=== PATIENT | male | born 1965 | race African-American/Black ===

== ENCOUNTER 2016-05-18 17:21 | Inpatient (IN) | payer OTHER ==
[2016-05-18] VITALS (217 sets, daily range): BP systolic 131–153; BP diastolic 103–119; PULSE 91–107; TEMP 97.4–98.7; O2SAT 88–100
[~2016-05-18] VITALS: Ht 180.3 cm; Wt 126.5 kg
[2016-05-18 19:50] LABS: INR 1.2 (0.8-3.0); PROTHROMBIN TIME 13.2 SECONDS (9.7-12.8)
[2016-05-19] VITALS (861 sets, daily range): BP systolic 107–160; BP diastolic 76–125; PULSE 62–118; TEMP 96.6–98.6; O2SAT 89–100
[2016-05-19 05:43] LABS: BASO % 0.3 % (0.0-2.0); EOS # 0.1 (0.0-0.7); EOS % 1.5 % (0-4.0); GRAN # 4.3 (1.4-6.5); GRAN % 58.2 % (42.2-75.2); HEMATOCRIT 45.5 % (42.0-52.0); HEMOGLOBIN 14.3 g/dl (13.5-18.0); LYMPH # 2.4 (1.2-3.4); LYMPH % 32.9 % (20.0-51.0); MEAN CELL VOLUME 89 fl (80.0-100.0); MEAN CORPUSCULAR HEMOGLOBIN 28 pg (27.0-31.0); MEAN CORPUSCULAR HGB CONC 31 g/dl (33.0-37.0); MEAN PLATELET VOLUME 9.2 fl (7.4-10.4); MONO # 0.5 (0.1-0.6); MONO % 6.7 % (1.7-9.3); PLATELET COUNT 274 K/mm3 (130-400); RED BLOOD COUNT 5.11 M/mm3 (4.20-5.60); REDCELL DISTRIBUTION WIDTH-CV 14.1 % (11.5-14.5); WHITE BLOOD COUNT 7.3 K/mm3 (4.8-10.8)
[2016-05-19 05:53] LABS: ANION GAP 12 mmol/L (7-16); BLOOD UREA NITROGEN 11 mg/dL (9-20); CALCIUM 9.4 mg/dL (8.4-10.2); CARBON DIOXIDE 28 mmol/L (22-30); CHLORIDE 101 mmol/L (98-107); CREATININE, serum 0.98 mg/dL (0.66-1.25); GLUCOSE 97 mg/dL (74-106); POTASSIUM 3.9 mmol/L (3.4-5.0); SODIUM 141 mmol/L (137-145)
[2016-05-19 06:08] LABS: TROPONIN-I < 0.012 ng/mL (0.000-0.034)
[2016-05-20] VITALS (467 sets, daily range): BP systolic 116–154; BP diastolic 90–106; PULSE 63–74; TEMP 96.8–98.5; O2SAT 84–100
[2016-05-20 05:35] LABS: BASO % 0.5 % (0.0-2.0); EOS # 0.1 (0.0-0.7); EOS % 0.7 % (0-4.0); GRAN # 5.6 (1.4-6.5); GRAN % 66.7 % (42.2-75.2); HEMATOCRIT 45.9 % (42.0-52.0); LYMPH # 2.2 (1.2-3.4); MEAN CELL VOLUME 93 fl (80.0-100.0); MEAN CORPUSCULAR HEMOGLOBIN 28 pg (27.0-31.0); MEAN CORPUSCULAR HGB CONC 31 g/dl (33.0-37.0); MEAN PLATELET VOLUME 9.3 fl (7.4-10.4); MONO # 0.5 (0.1-0.6); MONO % 5.9 % (1.7-9.3); PLATELET COUNT 281 K/mm3 (130-400); RED BLOOD COUNT 4.95 M/mm3 (4.20-5.60); REDCELL DISTRIBUTION WIDTH-CV 14.5 % (11.5-14.5); WHITE BLOOD COUNT 8.3 K/mm3 (4.8-10.8)
[2016-05-20 05:49] LABS: ADJUSTED CALCIUM 8.9 mg/dL (8.4-10.2); CALCIUM 8.9 mg/dL (8.4-10.2); CREATININE, serum 2.37 mg/dL (0.66-1.25); POTASSIUM 5.2 mmol/L (3.4-5.0); TOTAL PROTEIN 7.1 gm/dL (6.4-8.2)
[2016-05-20 12:55] LABS: CALCIUM 8.6 mg/dL (8.4-10.2); CREATININE, serum 1.91 mg/dL (0.66-1.25); PHOSPHOROUS 4.2 mg/dL (2.5-4.5); POTASSIUM 4.1 mmol/L (3.4-5.0)
[2016-05-21 03:07] VITALS: BP 156/100; PULSE 76; TEMP 98.2
[2016-05-21 07:10] LABS: CALCIUM 8.5 mg/dL (8.4-10.2); CREATININE, serum 1.24 mg/dL (0.66-1.25); POTASSIUM 4.3 mmol/L (3.4-5.0)
[2016-05-21 09:26] VITALS: BP 154/109; PULSE 84; TEMP 98
[2016-05-21 12:43] VITALS: BP 160/116; PULSE 78; TEMP 98.6
[2016-05-21 16:52] VITALS: BP 152/109; PULSE 75; TEMP 97.7
[2016-05-21 19:25] VITALS: BP 156/100; PULSE 74; TEMP 98.5
[2016-05-21 23:12] VITALS: BP 155/99; PULSE 73; TEMP 97.6
[2016-05-22 02:46] VITALS: BP 167/100; PULSE 80; TEMP 98.4
[2016-05-22 07:09] LABS: BASO % 0.5 % (0.0-2.0); EOS # 0.1 (0.0-0.7); EOS % 1.3 % (0-4.0); GRAN # 5.3 (1.4-6.5); GRAN % 70.7 % (42.2-75.2); HEMATOCRIT 45.1 % (42.0-52.0); HEMOGLOBIN 14.1 g/dl (13.5-18.0); LYMPH # 1.5 (1.2-3.4); LYMPH % 20.6 % (20.0-51.0); MEAN CELL VOLUME 90 fl (80.0-100.0); MEAN CORPUSCULAR HEMOGLOBIN 28 pg (27.0-31.0); MEAN CORPUSCULAR HGB CONC 31 g/dl (33.0-37.0); MEAN PLATELET VOLUME 9.4 fl (7.4-10.4); MONO # 0.5 (0.1-0.6); MONO % 6.5 % (1.7-9.3); PLATELET COUNT 272 K/mm3 (130-400); RED BLOOD COUNT 5.02 M/mm3 (4.20-5.60); WHITE BLOOD COUNT 7.4 K/mm3 (4.8-10.8)
[2016-05-22 07:32] LABS: CALCIUM 9.4 mg/dL (8.4-10.2); CREATININE, serum 0.95 mg/dL (0.66-1.25); POTASSIUM 4.2 mmol/L (3.4-5.0)
[2016-05-22 08:49] VITALS: BP 177/113; PULSE 81; TEMP 98.4
[2016-05-22] MEDS ORDERED: ELIQUIS 5MG PO (10:54)
[2016-05-22] MEDS ORDERED: LIPITOR 40MG TA40 MG PO (10:54)
[2016-05-22] MEDS ORDERED: BETAPACE 120MG120 MG PO (10:55)
[2016-05-22] MEDS ORDERED: ASPI325T6 PO (10:55)
[2016-05-22] MEDS ORDERED: NORVASC 10MG10 MG PO (10:55)
[2016-05-22] MEDS ORDERED: APRESOLINE 10MG10 MG PO (10:55)
[2016-05-22 12:39] VITALS: BP 172/109; PULSE 80; TEMP 98.8
== END 2016-05-22 14:30 | disposition home or self-care (01) | DRG 682 ==
LOC: IMCU 17:21 → MEDICAL 05-20 19:45
PROVIDERS: Family Medicine; Internal Medicine; Internal Medicine Cardiovascular Disease; Nurse Practitioner Family
PROC: 5A2204Z Restoration of Cardiac Rhythm, Single (ICD-10-PCS; principal; 2016-05-19)
DX: N17.9 Acute kidney failure, unspecified (principal); J96.00 Acute respiratory failure, unspecified whether with hypoxia or hypercapnia; I48.92 Unspecified atrial flutter; I10 Essential (primary) hypertension; J44.9 Chronic obstructive pulmonary disease, unspecified; E78.5 Hyperlipidemia, unspecified; H91.93 Unspecified hearing loss, bilateral; Z87.891 Personal history of nicotine dependence
CPT/HCPCS: 99232-AI; 99233-AI; 99238; G9654; J0282; J1560; J1940; J2270; J2704; J7030; J7040; J7050; J7060

== ENCOUNTER 2016-06-22 14:57 | Inpatient (IN) | payer OTHER ==
[~2016-06-22] VITALS: Ht 182.9 cm; Wt 120.1 kg
[2016-06-22] VITALS (129 sets, daily range): BP systolic 123–133; BP diastolic 88–91; PULSE 69–90; TEMP 98.1–98.7; O2SAT 92–100
[~2016-06-22 14:57] MED LIST: APRESOLINE 10MG10 MG PO; ASPI325T6 PO; BETAPACE 120MG120 MG PO; ELIQUIS 5MG PO; LIPITOR 40MG TA40 MG PO; NORVASC 10MG10 MG PO
[2016-06-22 19:28] LABS: TROPONIN-I < 0.012 ng/mL (0.000-0.034)
[2016-06-22 19:52] LABS: MAGNESIUM 1.6 mg/dL (1.6-2.3)
[2016-06-23] VITALS (363 sets, daily range): BP systolic 115–140; BP diastolic 83–97; PULSE 65–82; TEMP 97.2–98.4; O2SAT 82–100
[2016-06-23 06:13] LABS: HEMATOCRIT 45.6 % (42.0-52.0); MEAN CELL VOLUME 89 fl (80.0-100.0); MEAN CORPUSCULAR HEMOGLOBIN 27 pg (27.0-31.0); MEAN CORPUSCULAR HGB CONC 31 g/dl (33.0-37.0); MEAN PLATELET VOLUME 9.3 fl (7.4-10.4); PLATELET COUNT 250 K/mm3 (130-400); RED BLOOD COUNT 5.11 M/mm3 (4.20-5.60); REDCELL DISTRIBUTION WIDTH-CV 13.3 % (11.5-14.5); WHITE BLOOD COUNT 5.8 K/mm3 (4.8-10.8)
[2016-06-23 06:32] LABS: ADJUSTED CALCIUM 9.1 mg/dL (8.4-10.2); ALANINE AMINOTRANSFERASE 66 U/L (21-72); ALBUMIN 3.8 gm/dL (3.5-5.0); ALKALINE PHOSPHATASE 69 U/L (50-136); ANION GAP 9 mmol/L (7-16); BILIRUBIN,TOTAL 0.7 mg/dL (0.0-1.0); BLOOD UREA NITROGEN 10 mg/dL (9-20); CALCIUM 8.9 mg/dL (8.4-10.2); CARBON DIOXIDE 28 mmol/L (22-30); CHLORIDE 101 mmol/L (98-107); GLUCOSE 89 mg/dL (74-106); MAGNESIUM 1.8 mg/dL (1.6-2.3); POTASSIUM 4.4 mmol/L (3.4-5.0); SODIUM 138 mmol/L (137-145); TOTAL PROTEIN 7.2 gm/dL (6.4-8.2)
[2016-06-23 06:46] LABS: TROPONIN-I < 0.012 ng/mL (0.000-0.034)
[2016-06-24] VITALS (521 sets, daily range): BP systolic 121–137; BP diastolic 79–88; PULSE 74–77; TEMP 97.8–98.6; O2SAT 73–100
[2016-06-24 06:14] LABS: BASO % 0.5 % (0.0-2.0); EOS # 0.5 (0.0-0.7); EOS % 7.4 % (0-4.0); GRAN # 3.9 (1.4-6.5); GRAN % 64.4 % (42.2-75.2); HEMATOCRIT 43.8 % (42.0-52.0); HEMOGLOBIN 13.6 g/dl (13.5-18.0); LYMPH # 1.1 (1.2-3.4); LYMPH % 18.7 % (20.0-51.0); MEAN CELL VOLUME 89 fl (80.0-100.0); MEAN CORPUSCULAR HEMOGLOBIN 28 pg (27.0-31.0); MEAN CORPUSCULAR HGB CONC 31 g/dl (33.0-37.0); MEAN PLATELET VOLUME 9.4 fl (7.4-10.4); MONO # 0.5 (0.1-0.6); MONO % 8.7 % (1.7-9.3); PLATELET COUNT 243 K/mm3 (130-400); RED BLOOD COUNT 4.93 M/mm3 (4.20-5.60); REDCELL DISTRIBUTION WIDTH-CV 13.3 % (11.5-14.5); WHITE BLOOD COUNT 6.1 K/mm3 (4.8-10.8)
[2016-06-24 06:29] LABS: CALCIUM 8.8 mg/dL (8.4-10.2); CREATININE, serum 0.9 mg/dL (0.66-1.25)
[2016-06-24] MEDS ORDERED: ASPIRIN E.C. 8181 MG PO (09:25)
[2016-06-24] MEDS ORDERED: APRESOLINE 10MG10 MG PO (15:29)
[2016-06-24] MEDS ORDERED: LIPITOR 40MG TA40 MG PO (15:29)
[2016-06-24] MEDS ORDERED: NORVASC 10MG10 MG PO (15:29)
== END 2016-06-24 15:30 | disposition home or self-care (01) | DRG 282 ==
LOC: IMCU 14:57 → ICU 16:01 → IMCU 16:01 → ICU 16:46 → IMCU 06-23 15:40
PROVIDERS: Internal Medicine; Internal Medicine Cardiovascular Disease
PROC: 5A2204Z Restoration of Cardiac Rhythm, Single (ICD-10-PCS; principal; 2016-06-23)
DX: I48.0 Paroxysmal atrial fibrillation (principal); I21.4 Non-ST elevation (NSTEMI) myocardial infarction; I10 Essential (primary) hypertension; I47.2 Ventricular tachycardia; Z87.891 Personal history of nicotine dependence; Z91.14 Patient's other noncompliance with medication regimen
CPT/HCPCS: 99223-AI; 99233-AI; 99238; J2704; J3475

== ENCOUNTER → 2017-05-26 | Outpatient (CLI) | payer OTHER ==
[~2017-05-26] MED LIST changes: +ASPIRIN E.C. 8181 MG PO
== END ==
LOC: COL.VAS 11:15
DX: Z13.6 Encounter for screening for cardiovascular disorders (principal); M79.604 Pain in right leg; R60.0 Localized edema

== ENCOUNTER 2018-02-03 12:55 | Inpatient (IN) | payer OTHER ==
[2018-02-03] VITALS (236 sets, daily range): BP systolic 83–141; BP diastolic 58–89; PULSE 51–127; TEMP 97.7–99; O2SAT 53–99
[~2018-02-03] VITALS: Ht 193 cm; Wt 106.6 kg
[2018-02-03] MEDS ORDERED: INDOCIN 25MG CA25 MG PO (13:33)
[2018-02-03] MEDS ORDERED: NORCO 325 MG-51 TAB PO (13:34)
[2018-02-03 13:54] LABS: BASO % 0.2 % (0.0-2.0); GRAN # 8.3 (1.4-6.5); GRAN % 80.8 % (42.2-75.2); HEMATOCRIT 47.7 % (42.0-52.0); HEMOGLOBIN 14.9 g/dl (13.5-18.0); LYMPH # 1.2 (1.2-3.4); LYMPH % 11.9 % (20.0-51.0); MEAN CELL VOLUME 90 fl (80.0-100.0); MEAN CORPUSCULAR HEMOGLOBIN 28 pg (27.0-31.0); MEAN CORPUSCULAR HGB CONC 31 g/dl (33.0-37.0); MONO # 0.7 (0.1-0.6); MONO % 6.8 % (1.7-9.3); PLATELET COUNT 214 K/mm3 (130-400); RED BLOOD COUNT 5.31 M/mm3 (4.20-5.60); REDCELL DISTRIBUTION WIDTH-CV 14.5 % (11.5-14.5)
[2018-02-03 14:06] LABS: ALBUMIN 3.9 gm/dL (3.5-5.0); BILIRUBIN,TOTAL 1.2 mg/dL (0.0-1.0); C-REACTIVE PROTEIN 4.2 mg/dL (0.0-0.9); CALCIUM 9.1 mg/dL (8.4-10.2); CREATININE, serum 0.88 mg/dL (0.66-1.25); POTASSIUM 4.4 mmol/L (3.4-5.0); TOTAL PROTEIN 7.4 gm/dL (6.4-8.2)
[2018-02-03 15:44] LABS: COLLECTION METHOD CLEAN CATCH
[2018-02-03 15:59] LABS: MUCOUS Present /lpf; PH 5 (5-8); SQUAMOUS EPITHELIAL None Seen /hpf; URINE APPEARANCE Clear; URINE BACTERIA None Seen /hpf; URINE BILIRUBIN Negative (NEGATIVE); URINE BLOOD 1+ (NEGATIVE); URINE COLOR Yellow; URINE GLUCOSE Negative (NEGATIVE); URINE KETONE Negative (NEGATIVE); URINE LEUKOCYTE ESTERASE Negative (NEGATIVE); URINE NITRATE Negative (NEGATIVE); URINE PROTEIN(semi-quant) 3+ (NEGATIVE); URINE RBC 0-2 /hpf
--- NOTE | 2018-02-03 16:00 | NUR ---
Patient arrives to ICU room 8 at 1550. He is oriented to room and call light. Patient is deaf, but reads lips well. He also communicates with sign language. VS WNL. Assessment completed. Cardizem gtt infusing at 5 mg/hr. NS bolus going in by gravity. Will continue to monitor.
--- NOTE | 2018-02-03 16:30 | NUR ---
Dr. Lott here to see patient
--- NOTE | 2018-02-03 19:06 | NUR ---
Bedside report given to HARSHA Faustin. Plan of care discussed. Care turned over at this time
--- NOTE | 2018-02-03 19:45 | NUR ---
Patient assessment completed and charted at this time, please see documentation for details. Patient resting in bed, does complain of some lower back pain. Conversed with patient and agreed to allow PO medication a little more time to work. Will continue to monitor and assess.
[2018-02-04] VITALS (935 sets, daily range): BP systolic 101–140; BP diastolic 40–95; PULSE 50–80; TEMP 97.7–98.5; O2SAT 66–100
--- NOTE | 2018-02-04 05:51 | NUR ---
PT RESTING IN BED. DEAF. HAS HEARING AIDES. SPEECH DIFFICULT TO UNDERSTAND. STILL IN AFLUTTER. CARDIOVERSION SCHEDULED FOR TDAY AT 10AM.
[2018-02-04 07:14] LABS: CALCIUM 8.4 mg/dL (8.4-10.2); CREATININE, serum 2.25 mg/dL (0.66-1.25)
--- NOTE | 2018-02-04 07:15 | NUR ---
Bedside report received from HARSHA Faustin. Most recent labs reviewed and phoned to Dr. Lott and Dr. Amador. Nephrology consult called. Orders received to treat high potassium with kayexalate and calcium gluconate. see emar. will continue to monitor
[2018-02-04 07:19] LABS: MAGNESIUM 1.8 mg/dL (1.6-2.3)
--- NOTE | 2018-02-04 08:15 | NUR ---
ORDER RECEIVED FROM DR. NGUYEN TO HOLD IV FLUIDS AT THIS TIME. ORDERS ALSO RECEIVED FOR CHEST XRAY AND STAT BNP
[2018-02-04 09:36] LABS: PARTIAL THROMBOPLASTIN TIME 41.4 SECONDS (26.0-37.0)
[2018-02-04 09:38] LABS: CALCIUM 8.7 mg/dL (8.4-10.2); CREATININE, serum 2.37 mg/dL (0.66-1.25)
[2018-02-04 09:40] LABS: POTASSIUM 6.8 mmol/L (3.4-5.0)
--- NOTE | 2018-02-04 10:15 | NUR ---
DR. OLIVERA AND DR. NGUYEN HERE TO SEE PATIENT.
--- NOTE | 2018-02-04 12:44 | NUR ---
1212- TIME OUT, ALL PROVIDERS, TECHS, RNS IN ROOM. 1215- TOO STARTS 1218-TOO ENDS 1219- PATIENT CARDIOVERTED WITH 50 JOULES FROM AFLUTTER TO SR 70s 1234- MANAGER MARKET INTELLIGENCE CALI DEEMS PATIENT STABLE AND ABLE TO MANAGE HIS AIRWAY. THIS RN RESUMES RECOVERY 1245- PATIENT WAKENS TO LIGHT STIMULATION, VS WNL, OFF O2, WILL CONTINUE TO MONITOR
[2018-02-04 13:58] LABS: URINE PROTEIN:CREAT RATIO 3.18 (0.00-0.14)
[2018-02-04 14:54] LABS: CALCIUM 7.9 mg/dL (8.4-10.2); CREATININE, serum 2.75 mg/dL (0.66-1.25)
[2018-02-04 15:02] LABS: POTASSIUM 5.9 mmol/L (3.4-5.0)
--- NOTE | 2018-02-04 16:30 | NUR ---
Patient complains of needing to void. Bladder scan completed. 32 cc urine found in bladder. Urine droplets draining out of medellin, patient encouraged to try to relax and rest. Will continue to monitor
--- NOTE | 2018-02-04 19:36 | NUR ---
BEDSIDE REPORT GIVEN TO HARSHA LEON. PATIENT C/O DISCOMFORT AND "NEEDING TO PEE". HE SITS ON SIDE OF BED. HEPARIN GTT AND LASIX GTT REVIEWED. CARE TURNED OVER AT THIS TIME.
--- NOTE | 2018-02-04 20:30 | NUR ---
Patient difficult to communicate with. Appears to have little interest in nursing care. This nurse has to make multiple attempts to get patient to answer questions and read written questions. Gives vague responses or doesn't respond at all to direct questions. Able to follow all commands and is alert.
[2018-02-05] VITALS (1374 sets, daily range): BP systolic 96–157; BP diastolic 64–109; PULSE 72–83; TEMP 98.2–99.2; O2SAT 33–100
[2018-02-05 00:10] LABS: CALCIUM 7.8 mg/dL (8.4-10.2); CREATININE, serum 3.4 mg/dL (0.66-1.25); POTASSIUM 5.2 mmol/L (3.4-5.0)
--- NOTE | 2018-02-05 00:40 | NUR ---
Called Dr. Thompson to report latest BMP results and that patient has had two hours of greater than 350 urine output. Instructed to hold drip and restart it a 5 mg/hr at 0130. If Still greater than 250 after one hour then can discontinue drip. Will Make NPO just in case patient will need emergent dialysis tomorrow.
--- NOTE | 2018-02-05 02:48 | NUR ---
Eulalia warren stopped per Dr. Thompson's orders.
--- NOTE | 2018-02-05 05:45 | NUR ---
Benefits Administrator 1st attempt unsuccessful at obtaining labs. Attempted to draw from IV but was not able to get enough blood. Patient refusing to allow tech to re-attempt. Will Re-try again with another tech.
--- NOTE | 2018-02-05 07:15 | NUR ---
Report received from HARSHA English.
--- NOTE | 2018-02-05 08:00 | NUR ---
Assessment completed. Pt is deaf. Pt nods head yes/no to questions written down for him. Remains on heparin gtt. Mayes catheter in place with increased urine output. Call light in reach. Will monitor.
[2018-02-05 08:21] LABS: CALCIUM 8.1 mg/dL (8.4-10.2); CREATININE, serum 3.81 mg/dL (0.66-1.25); POTASSIUM 4.5 mmol/L (3.4-5.0)
--- NOTE | 2018-02-05 09:41 | NUR ---
Pt's BP still 150/100s. Paged Dr. Carr's RN. Waiting for call back.
--- NOTE | 2018-02-05 11:09 | NUR ---
tie up worker attended clinical rounds and met with patient to discuss discharge planning. Patient is deaf and reads lips. Patient was unable to communicate with worker. Worker left a message with patient's Aunt, Cheri at [phone] to call.
--- NOTE | 2018-02-05 11:30 | NUR ---
Rehab assisted pt to chair. Pt needs x1 assist. Pt tolerated well. Call light in reach.
--- NOTE | 2018-02-05 12:00 | NUR ---
Pt sitting in chair. vital signs stable. REmains on Heparin gtt. Call light in reach.
--- NOTE | 2018-02-05 13:30 | NUR ---
Alayna from [facility], placed PICC in Right upper arm. CXR done and placement verified. Peripheral IV x2 in left arm dc'd. Heparin gtt infusing through PICC in red port.
--- NOTE | 2018-02-05 16:00 | NUR ---
Pt resting in bed. Easily arousable. Nods head yes/no to questions. Vital signs stable. On Amiodarone and Heparin gtts through right upper arm PICC. Call light in reach.
[2018-02-05 17:04] LABS: COMPLEMENT-C3 135 mg/dL (79-152); COMPLEMENT-C4 27 mg/dL (18-55)
--- NOTE | 2018-02-05 18:00 | NUR ---
Pt's family at bedside. Updated on pt status and plan of care r/t Amiodarone gtt and heparin gtts. Discussed increased urine output after lasix gtt taken off. Pt's family verbalized understanding.
--- NOTE | 2018-02-05 19:10 | NUR ---
Report given to HARSHA Andres.
--- NOTE | 2018-02-05 20:00 | NUR ---
DURING PT ASSESSMENT, PT INATTENTIVE, DROWSY, AND FALLING ASLEEP RATHER QUICKLY. PT ASKED QUESTION BY WRITING NOTES TO PT AND HAVING PT READ NURSES LIPS DUE TO PTS HEARING DEFICIT. PT DID NOT EAT MUCH OF DINNER. PT A&O X3. ANSWERS QUESTION APPROPRIATELY. PT DENIES PAIN AT THIS TIME. PT RESTING SEMI FOWLERS IN BED.
[2018-02-05 21:54] LABS: ANA SCREEN with REFLEX Negative (Negative)
[2018-02-06] VITALS (988 sets, daily range): BP systolic 120–143; BP diastolic 77–92; PULSE 71–80; TEMP 97.7–98.8; O2SAT 77–100
[2018-02-06 06:34] LABS: HEMATOCRIT 48.5 % (42.0-52.0); HEMOGLOBIN 15.9 g/dl (13.5-18.0); MEAN CELL VOLUME 87 fl (80.0-100.0); MEAN CORPUSCULAR HEMOGLOBIN 28 pg (27.0-31.0); MEAN CORPUSCULAR HGB CONC 33 g/dl (33.0-37.0); MEAN PLATELET VOLUME 10.2 fl (7.4-10.4); PLATELET COUNT 140 K/mm3 (130-400); RED BLOOD COUNT 5.59 M/mm3 (4.20-5.60); REDCELL DISTRIBUTION WIDTH-CV 13.7 % (11.5-14.5)
[2018-02-06 06:39] LABS: CALCIUM 7.9 mg/dL (8.4-10.2); CREATININE, serum 2.93 mg/dL (0.66-1.25)
[2018-02-06 06:53] LABS: POTASSIUM 2.9 mmol/L (3.4-5.0)
--- NOTE | 2018-02-06 07:00 | NUR ---
Bedside shift report received from HARSHA Andres. Pt in bed resting, eyes closed, will continue mini onitor.
--- NOTE | 2018-02-06 15:54 | NUR ---
Called Lilly for clarification on Hydralazine. Per Lilly, "no parameters, just give the med as scheduled". Will do
--- NOTE | 2018-02-06 17:12 | NUR ---
Assessment charted. pt c/o abd discomfort, feeling of fullness. Lotion applied to BLE for dryness. Pt communicating minimally with paper and pen as well as lip reading. Pt up to chair and back to bed, eating some food but not a good appetite. Has been coughing when moving from bed to chair and has some pink sputum but also drinking cranberry juice. PICC dressing changed per orders. Heparin gtt to JAYDE. Amio gtt d/c'd at 1500 after PO amio given at 1400. Report called to HARSHA Bergman on medical who will resume care. Transported pt via w/c with medical nurse and all belongings to new room. Pt given call light and assisted to bed. Medical nurse to resume care.
--- NOTE | 2018-02-06 17:31 | NUR ---
Pt up to unit from ICU. Report received from Nuha MCLEOD. Pt completed K+ protocol and recheck scheduled for 1899. Pt on Heparin drip at 22.6mL/hr via right arm PICC. Pt has productive cough with white sputum. Pt on telemetry and HR irregular and in the 80's. Pt denies pain. Pt does not want to order food now advised pt need to order by 1830. Pt requests a cough drop will update hospitalist. Pt is deaf and white board used to communicate. Pt oriented to room and med reconciliation completed. Pt has call light in reach and desk notified pt is deaf. Pt lungs are clear. Pt has medellin cath that is patent with yellow urine and small amt of sediment noted.
--- NOTE | 2018-02-06 18:12 | NUR ---
Pt on Heparin gtt at 22.6ml/hr. No HepXa since 821am so ordered HepXa now stat. Heparin gtt stopped for 10min and then lab emile Hep Xa with nurse from pt PICC line. Pt resting in bed with eyes closed and respirations unlabored. Pt has call light in reach.
--- NOTE | 2018-02-06 19:55 | NUR ---
Shift assessment complete. Pt resting in bed, awake, a&o, cooperative c cares. Pt c/o cough et sore throat, req cough drops; pt denies any other c/o. PICC noted to R upper arm, patent c good blood return. Tele in place. Gerber to dd. Hep gtt infusing per orders. Pt denies further needs. Call light in reach, will monitor.
[2018-02-06 20:36] LABS: C-ANCA 19 U/mL (0-99)
[2018-02-07 01:31] VITALS: BP 124/80; PULSE 78; TEMP 98.7
[2018-02-07 04:21] VITALS: PULSE 72
[2018-02-07 07:30] LABS: CALCIUM 8.7 mg/dL (8.4-10.2)
--- NOTE | 2018-02-07 08:16 | NUR ---
Assessment completed, alert/oriented, vital signs stable, denies any chest pain or discomfort, heart irregular at this time/ has been in and out of A.fib /flutter on telemetry through the night/ currently HR 130, morning amiodarone and hydralazine given at thi stime, distal pulses are palpable, 1-2+ edema to BLE, lungs CTA/ no resp.difficulty noted, potassium 3.0 / replacing per protocol, GFR up a little thi moring at 42 and creat is down to 2.0, medellin patent with clear yellow urine and good output noted, Hep gtt continues and adjusting according to protocol, helped him order brekfast, denies other needs at this time
[2018-02-07 08:46] VITALS: BP 93/67; PULSE 51; TEMP 97.3
[2018-02-07 12:35] VITALS: BP 124/81; PULSE 74; TEMP 97.8
[2018-02-07 16:31] VITALS: BP 135/83; PULSE 72; TEMP 98.1
[2018-02-07 20:00] VITALS: BP 144/86; PULSE 77; TEMP 98.2
--- NOTE | 2018-02-07 20:10 | NUR ---
Shift assessment complete. Pt resting in bed, awake, a&o, cooperative c cares. Pt reports continued abd pain et flank pain, denies any other c/o. PICC noted to R upper arm, patent c good blood return. Heparin gtt infusing per orders. Tele in place. Mayes to dd s complication. Pt denies further needs. Call light in reach, will monitor.
[2018-02-08 00:28] VITALS: BP 134/88; PULSE 79; TEMP 98.2
[2018-02-08 06:07] LABS: HEMATOCRIT 51.5 % (42.0-52.0); HEMOGLOBIN 16.6 g/dl (13.5-18.0); MEAN CELL VOLUME 87 fl (80.0-100.0); MEAN CORPUSCULAR HEMOGLOBIN 28 pg (27.0-31.0); MEAN CORPUSCULAR HGB CONC 32 g/dl (33.0-37.0); MEAN PLATELET VOLUME 10.5 fl (7.4-10.4); PLATELET COUNT 188 K/mm3 (130-400); RED BLOOD COUNT 5.91 M/mm3 (4.20-5.60); REDCELL DISTRIBUTION WIDTH-CV 13.9 % (11.5-14.5)
[2018-02-08 06:24] LABS: CREATININE, serum 1.73 mg/dL (0.66-1.25); POTASSIUM 3.6 mmol/L (3.4-5.0)
[2018-02-08 08:00] VITALS: BP 139/69; PULSE 80; TEMP 99.1
--- NOTE | 2018-02-08 09:58 | NUR ---
Assessment completed, alert/oriented, vital signs stable, continues to report moderats flank pain as well as Medellin catherter associate discomfort, Giving [place] PRN and he does report this helpes some, notified of pain, we will removed medellin and do voiding trial, creatnine trending down and he is making good urine output, heart RRR this morning/ still having runs of A.fib/ ST and Cardiology is following, he is drinking plenty of fluid but does not have appetite, Heparin gtt infusing/ monitoring per protocol, denies other needs at this time
[2018-02-08 10:55] VITALS: BP 122/86; PULSE 80; TEMP 98.1
--- NOTE | 2018-02-08 12:00 | NUR ---
THIS NURSE SAW ORDER FOR NEW HAPARIN BAG TO BE CHANGED OUT. WENT TO CHECK PT HEP XA TO SEE IF RATE CHANGE WAS NEEDED. THIS NURSE SAW THAT NO HEP XA LAB WAS DRAWN AT 1999, PER PROTOCOL. ORDERED A STAT HEP XA LEVEL. LEVEL WAS 0.81. ADJUSTED RATE PROTOCOL TO 20.1 SUBRATICING 1.5 FROM THE CURRENT RATE. ANOTHER LAB CHECK ORDERED FOR 6 HOURS FROM LAB DRAW.
[2018-02-08 15:20] VITALS: BP 106/78; PULSE 84; TEMP 98.4
--- NOTE | 2018-02-08 16:15 | NUR ---
instructed the patient on wanting to do PVR after medellin removed, he voided but did not call/ so I explained over again what we were wanting to do with the PVR and to call us immediatley after he voids urine, he voiced understanding
--- NOTE | 2018-02-08 20:00 | NUR ---
PT HAD C/O BACK PAIN THIS HS. GAVE PRN PAIN MEDS, PT WANTED AN ICE PACK TO AREA. PT HAD WALKED SOME IN THE [place] TO HELP ELEVAIATE PAIN.
[2018-02-08 20:42] VITALS: BP 150/78; PULSE 79; TEMP 98.8
[2018-02-09] VITALS (8 sets, daily range): BP systolic 129–170; BP diastolic 72–95; PULSE 59–88; TEMP 97.5–99
--- NOTE | 2018-02-09 01:00 | NUR ---
PT HAS BEEN RECIEVING ICE ON HIS BACK THROUGHOUT NOC. STATED THAT ITS HELPED RELIEVED PAIN
--- NOTE | 2018-02-09 02:53 | NUR ---
TELEMETERY CALLED THIS NURSE AND SAID PT WAS IN AFIB, AND TO OBTAIN AN EKG. PTS PULSE WAS 150'S RANGE. EKG STATED THAT PT WAS IN AFIB RVR. BLOOD PRESSURE AFTER EKG IS 170/72. NOTIFIED NATIVIDAD BERG
--- NOTE | 2018-02-09 03:17 | NUR ---
PT WAS BLADDER SCANNED THIS SHIFT. PT ONLY HAD 100CC IN BLADDER AT THE TIME. NO COMPLAINTS.
[2018-02-09 07:49] LABS: HEMOGLOBIN 16.4 g/dl (13.5-18.0); MEAN CELL VOLUME 85 fl (80.0-100.0); MEAN CORPUSCULAR HEMOGLOBIN 28 pg (27.0-31.0); MEAN CORPUSCULAR HGB CONC 33 g/dl (33.0-37.0); MEAN PLATELET VOLUME 9.8 fl (7.4-10.4); PLATELET COUNT 190 K/mm3 (130-400); RED BLOOD COUNT 5.88 M/mm3 (4.20-5.60); REDCELL DISTRIBUTION WIDTH-CV 13.6 % (11.5-14.5)
[2018-02-09 07:59] LABS: CALCIUM 8.7 mg/dL (8.4-10.2); CREATININE, serum 1.53 mg/dL (0.66-1.25); POTASSIUM 3.4 mmol/L (3.4-5.0)
[2018-02-09 09:19] LABS: BAND 1 % (0-10); EOSINOPHIL 1 % (0-4); LYMPHOCYTE 19 % (20.0-51.0); NEUTROPHILS 67 % (42.0-75.2); PLATELET ESTIMATE NORMAL (NORMAL)
--- NOTE | 2018-02-09 11:20 | NUR ---
Assessment completed, alert/oriented, vital signs stable, denies any acute pain or dsicomfort, [place] given for his ongoing back pain/ also went for a walk in the hallway as the position changes help with the discomfort as well, heart RRR/ distal pulses are palpable, no runs of A.fib noted on tele so far during my shift, spoke with / we will stop hep gtt and tansition to oral anticoagulation today, medellin removed yesterday and patient voiding find/ PVR have been minimal, replacing KCL per protocol, denies needs, will continue to monitor
--- NOTE | 2018-02-09 13:00 | NUR ---
PICC intact right upper arm. With sterile technique right upper arm PICC dressing change done with insertion site cleansed with ChloraPrep 1, StatLock, skin prep, and Tegaderm applied. No signs or symptoms of IV complications noted. No concerns voiced. Arm wrapped with Rico to protect catheter.
[2018-02-09] MEDS ORDERED: XARELTO20 MG PO (16:43)
[2018-02-09] MEDS ORDERED: PACERONE400 MG PO (16:44)
[2018-02-09] MEDS ORDERED: LIPITOR20 MG PO (16:44)
[2018-02-09] MEDS ORDERED: APRESOLINE 25MG25 MG PO (16:45)
[2018-02-09] MEDS ORDERED: IMDUR 30MG30 MG/TAB PO (16:45)
[2018-02-10 03:37] VITALS: BP 156/98; PULSE 85; TEMP 97.8
--- NOTE | 2018-02-10 04:23 | NUR ---
PT HAD UNEVENTFUL NOC. PT HAD SOME NOTED C/O BACK PAIN AT HS, ADMINSITERED PRN MED AND PROVIDED PT WITH ICE PACK PER REQUEST. PT DID WALK THE HALLS SOME THIS EVENING. HAD A SNACK, AND ENSURE AT HS. NO OTHER ISSUES OR CONSERNS VOICED.
[2018-02-10 06:00] LABS: HEMOGLOBIN 17.4 g/dl (13.5-18.0); MEAN CELL VOLUME 87 fl (80.0-100.0); MEAN CORPUSCULAR HEMOGLOBIN 28 pg (27.0-31.0); MEAN CORPUSCULAR HGB CONC 32 g/dl (33.0-37.0); MEAN PLATELET VOLUME 10.1 fl (7.4-10.4); PLATELET COUNT 192 K/mm3 (130-400); RED BLOOD COUNT 6.26 M/mm3 (4.20-5.60); REDCELL DISTRIBUTION WIDTH-CV 13.8 % (11.5-14.5)
[2018-02-10 06:13] LABS: HEMATOCRIT 54.3 % (42.0-52.0)
[2018-02-10 06:14] LABS: CALCIUM 9.2 mg/dL (8.4-10.2); CREATININE, serum 1.53 mg/dL (0.66-1.25); MAGNESIUM 1.5 mg/dL (1.6-2.3); POTASSIUM 3.7 mmol/L (3.4-5.0)
[2018-02-10 06:55] LABS: BAND 1 % (0-10); LYMPHOCYTE 21 % (20.0-51.0); NEUTROPHILS 66 % (42.0-75.2)
[2018-02-10 06:56] LABS: PLATELET ESTIMATE NORMAL (NORMAL); TOXIC GRANULATION PRESENT
[2018-02-10 07:51] VITALS: BP 131/87; PULSE 78; TEMP 98.6
--- NOTE | 2018-02-10 08:00 | NUR ---
PATIENT ASSESSMENT COMPLETED. DENIES PAIN BREAKFAST HAS ARRIVED NO OTHER NEEDS AT THIS TIME
[2018-02-10 12:50] VITALS: BP 112/79; PULSE 80; TEMP 99
--- NOTE | 2018-02-10 13:43 | NUR ---
Pt discharged at this time. R upper arm PICC line removed at 1300 per protocol. Education regarding high blood pressure, lower back pain, atrial flutter, rivaroxaban, isosorbide mononitrate, hydralazine, atrovastatin, amiodarone, and s/sx's of an adverse reaction provided. Pt verbalizes understanding. Pt escourted out via WC with tech. Nely
[2018-02-10 14:04] LABS: RENIN,PLASMA 1.5 ng/mL/h (())
== END 2018-02-10 12:40 | disposition home or self-care (01) | DRG 308 ==
LOC: COL.ER 12:55 → ICU 14:39 → MEDICAL 16:00 → ICU 16:01 → MEDICAL 02-06 17:00
PROVIDERS: Emergency Medicine; Internal Medicine; Nurse Practitioner Family; ADMIT Internal Medicine
PROC: 5A2204Z Restoration of Cardiac Rhythm, Single (ICD-10-PCS; principal; 2018-02-04)
DX: I48.92 Unspecified atrial flutter (principal); I50.23 Acute on chronic systolic (congestive) heart failure; N17.9 Acute kidney failure, unspecified; I48.0 Paroxysmal atrial fibrillation; I11.0 Hypertensive heart disease with heart failure; E78.5 Hyperlipidemia, unspecified; Z91.14 Patient's other noncompliance with medication regimen; Z87.891 Personal history of nicotine dependence; G47.33 Obstructive sleep apnea (adult) (pediatric); E87.5 Hyperkalemia; I27.22 Pulmonary hypertension due to left heart disease; I08.1 Rheumatic disorders of both mitral and tricuspid valves
CPT/HCPCS: 99222-AI; 99232-AI; 99233-AI; 99239; C1751; G9654; J0282; J0360; J0610; J1170; J1644; J1650; J1940; J2704; J3480; J7030; J7060

== ENCOUNTER 2018-03-07 08:52 | Day surgery (SDC) | payer OTHER ==
[2018-03-07] VITALS (8 sets, daily range): BP systolic 125–166; BP diastolic 78–114; PULSE 68–74; TEMP 98.8
[~2018-03-07] VITALS: Ht 193.1 cm; Wt 109.9 kg
[~2018-03-07 08:52] MED LIST changes: +APRESOLINE 25MG25 MG PO; +IMDUR 30MG30 MG/TAB PO; +INDOCIN 25MG CA25 MG PO; +LIPITOR20 MG PO; +NORCO 325 MG-51 TAB PO; +PACERONE400 MG PO; +XARELTO20 MG PO
[2018-03-07 09:34] LABS: HEMATOCRIT 44.5 % (42.0-52.0); MEAN CELL VOLUME 88 fl (80.0-100.0); MEAN CORPUSCULAR HEMOGLOBIN 28 pg (27.0-31.0); MEAN CORPUSCULAR HGB CONC 32 g/dl (33.0-37.0); PLATELET COUNT 367 K/mm3 (130-400); RED BLOOD COUNT 5.05 M/mm3 (4.20-5.60); REDCELL DISTRIBUTION WIDTH-CV 13.8 % (11.5-14.5)
[2018-03-07 09:40] LABS: INR 1.4 (0.8-3.0); PROTHROMBIN TIME 16.2 SECONDS (9.7-12.8)
[2018-03-07 09:45] LABS: CALCIUM 9.4 mg/dL (8.4-10.2); CREATININE, serum 1.43 mg/dL (0.66-1.25); POTASSIUM 4.3 mmol/L (3.4-5.0)
[2018-03-07] MEDS ORDERED: CORDARONE200 MG/TAB PO (09:48)
[2018-03-07] MEDS ORDERED: PROAIR HFA0.09 MG/AC IH (09:49)
[2018-03-07] MEDS ORDERED: XARELTO20 MG PO (09:51)
[2018-03-07] MEDS ORDERED: TOPROL XL 25MG25 MG PO (09:51)
[2018-03-07] MEDS ORDERED: LIPITOR20 MG PO (09:52)
[2018-03-07] MEDS ORDERED: BACTRIM DS 8001 TAB PO (09:54)
[2018-03-07] MEDS ORDERED: TESSALON P100 MG/CAP PO (09:55)
[2018-03-07] MEDS ORDERED: MUCINEX1200 MG PO (09:56)
[2018-03-07] MEDS ORDERED: ALDACTONE 25MG25 M1 PO (10:38)
--- NOTE | 2018-03-07 10:39 | NUR ---
rEPORT RECEIVED FROM addy Haines.
--- NOTE | 2018-03-07 12:17 | NUR ---
Discharge instructions given to pt.Pt verbalizes understanding.INT removed,cathetr tip intact.
--- NOTE | 2018-03-07 12:30 | NUR ---
Pt escorted out via wheelchair by this nurse.
== END 2018-03-07 12:51 | disposition home or self-care (01) ==
LOC: COL.CAR 08:52
PROVIDERS: Internal Medicine Cardiovascular Disease
DX: I48.92 Unspecified atrial flutter (principal); I11.0 Hypertensive heart disease with heart failure; I50.20 Unspecified systolic (congestive) heart failure; E66.9 Obesity, unspecified; Z68.32 Body mass index [BMI] 32.0-32.9, adult; Z79.01 Long term (current) use of anticoagulants; Z79.899 Other long term (current) drug therapy; E78.5 Hyperlipidemia, unspecified; Z87.891 Personal history of nicotine dependence; G47.33 Obstructive sleep apnea (adult) (pediatric); N28.9 Disorder of kidney and ureter, unspecified; Z91.19 Patient's noncompliance with other medical treatment and regimen
CPT/HCPCS: J2704